=== PATIENT | female | born 1990 | race Caucasian/White ===

== ENCOUNTER → 2024-09-18 | Outpatient (CLI) | payer BC ==
[2024-09-18 18:50] LABS: HEMATOCRIT 39.6 % (36.0-47.0); HEMOGLOBIN 13.5 g/dl (12.0-15.5); MEAN CORPUSCULAR HEMOGLOBIN 29.3 pg (27.0-33.0); MEAN CORPUSCULAR HGB CONC 34.1 g/dl (32.0-36.5); MEAN CORPUSCULAR VOLUME 86.1 fl (80.0-96.0); PLATELET COUNT, AUTOMATED 287 10^3/uL (150-450); WHITE BLOOD COUNT 10.3 10^3/uL (4.0-10.0)
[2024-09-18 19:49] LABS: HIV 1&2 SCREEN NEGATIVE (NEGATIVE)
[2024-09-18 19:58] LABS: HEPATITIS C VIRUS ABY INDEX 0.03 INDEX (<0.8)
[2024-09-18 20:00] LABS: Trichomonas vaginalis (AMP) NOT DETECTED (NEGATIVE)
[2024-09-18 20:23] LABS: GC DNA AMPLIFICATION NEGATIVE (NEGATIVE)
== END ==
LOC: M PLALAB 16:06
PROVIDERS: ATTEND Advanced Practice Midwife
DX: Z34.91 Encounter for supervision of normal pregnancy, unspecified, first trimester (principal)

== ENCOUNTER → 2024-09-18 | Outpatient (REF) | payer BC | LOC: M PLALAB 15:59 | PROVIDERS: ATTEND Advanced Practice Midwife | DX: Z34.81 Encounter for supervision of other normal pregnancy, first trimester (principal) ==

== ENCOUNTER → 2024-11-19 | Outpatient (CLI) | payer BC | LOC: M WHC 14:34 | PROVIDERS: ATTEND Specialist | DX: Z34.82 Encounter for supervision of other normal pregnancy, second trimester (principal) ==

== ENCOUNTER → 2025-01-03 | Outpatient (CLI) | payer BC ==
[2025-01-03 17:25] LABS: PLATELET COUNT, AUTOMATED 257 10^3/uL (150-450)
[2025-01-03 18:21] LABS: HIV 1&2 SCREEN NEGATIVE (NEGATIVE)
[2025-01-03 18:28] LABS: HEPATITIS C VIRUS ABY INDEX 0.08 INDEX (<0.8)
== END ==
LOC: M PLALAB 14:49
PROVIDERS: ATTEND Obstetrics & Gynecology
DX: Z34.80 Encounter for supervision of other normal pregnancy, unspecified trimester (principal)

== ENCOUNTER → 2025-01-03 | Outpatient (CLI) | payer BC | LOC: M WHC 13:35 | PROVIDERS: ATTEND Obstetrics & Gynecology | DX: O44.40 Low lying placenta NOS or without hemorrhage, unspecified trimester (principal); Z34.80 Encounter for supervision of other normal pregnancy, unspecified trimester ==

== ENCOUNTER → 2025-01-09 | Outpatient (CLI) | payer BC ==
[2025-01-09 16:18] LABS: ALT/SGPT 17 U/L (7.0-40); AST/SGOT 17 U/L (<34); CREATININE FOR GFR 0.61 MG/DL (0.55-1.30); GLOMERULAR FILTRATION RATE > 90.0 (>60); GLUCOSE CHALLENGE TEST 1 HOUR 143 MG/DL (LESS THAN 140); LDH LACTATE DEHYDROGENASE 176 U/L (120-246)
== END ==
LOC: M PLALAB 12:16
PROVIDERS: ATTEND Obstetrics & Gynecology
DX: Z34.80 Encounter for supervision of other normal pregnancy, unspecified trimester (principal)

== ENCOUNTER → 2025-01-23 | Outpatient (CLI) | payer BC | LOC: M LAB 07:09 | PROVIDERS: ATTEND Nurse Practitioner Family | DX: E74.39 Other disorders of intestinal carbohydrate absorption (principal) ==

== ENCOUNTER → 2025-02-06 | Outpatient (CLI) | payer BC | LOC: M WHC 07:42 | PROVIDERS: ATTEND Nurse Practitioner Family | DX: O40.3XX0 Polyhydramnios, third trimester, not applicable or unspecified (principal); Z3A.30 30 weeks gestation of pregnancy ==

== ENCOUNTER → 2025-02-13 | Outpatient (CLI) | payer BC | LOC: M RAD 12:00 | PROVIDERS: ATTEND Obstetrics & Gynecology | DX: O40.3XX1 Polyhydramnios, third trimester, fetus 1 (principal); O28.8 Other abnormal findings on antenatal screening of mother ==

== ENCOUNTER → 2025-02-18 | Outpatient (CLI) | payer BC | LOC: M RAD 15:52 | PROVIDERS: ATTEND Obstetrics & Gynecology | DX: O40.3XX1 Polyhydramnios, third trimester, fetus 1 (principal); O28.8 Other abnormal findings on antenatal screening of mother ==

== ENCOUNTER → 2025-03-01 | Outpatient (CLI) | payer BC | LOC: M RAD 13:00 | PROVIDERS: ATTEND Obstetrics & Gynecology | DX: O40.3XX1 Polyhydramnios, third trimester, fetus 1 (principal); O28.8 Other abnormal findings on antenatal screening of mother ==

== ENCOUNTER → 2025-03-07 | Outpatient (CLI) | payer BC | LOC: M RAD 16:10 | PROVIDERS: ATTEND Obstetrics & Gynecology | DX: O40.3XX1 Polyhydramnios, third trimester, fetus 1 (principal) ==

== ENCOUNTER 2025-03-13 16:33 | Outpatient (CLI) | payer BC ==
[~2025-03-13] VITALS: Ht 175.3 cm; Wt 84.4 kg
[2025-03-13 16:51] VITALS: BP 139/78
[2025-03-13] MEDS ORDERED: PEPC1TAB5 PO (16:55)
[2025-03-13] MEDS ORDERED: ECOT81TA5 PO (16:55)
[2025-03-13] MEDS ORDERED: PRENTAB9 PO (16:55)
[2025-03-13 18:53] VITALS: BP 129/76
[2025-03-13] MEDS: BETAMETHASONE SOLUSPAN 6 MG/ML 5 ML VIAL IM SCH (20:02)
[2025-03-14] VITALS (19 sets, daily range): BP systolic 93–129; BP diastolic 51–76
[2025-03-14] MEDS ORDERED: HOME MED LIST COMPLETE! XX SCH (07:10)
[2025-03-14] MEDS: CALCIUM CARBONATE 500 MG CHEW U/D PO PRN (11:05)
== END 2025-03-14 20:18 | disposition home or self-care (01) ==
LOC: M LDO 16:33
PROVIDERS: ATTEND Advanced Practice Midwife
DX: O28.8 Other abnormal findings on antenatal screening of mother (principal); O26.23 Pregnancy care for patient with recurrent pregnancy loss, third trimester; Z87.59 Personal history of other complications of pregnancy, childbirth and the puerperium; Z67.31 Type AB blood, Rh negative; Z3A.35 35 weeks gestation of pregnancy
CPT/HCPCS: 59025; 76815; 76819; 76820; 96372; G0463; J0702

== ENCOUNTER → 2025-03-13 | Outpatient (REF) | payer BC ==
[~2025-03-13] MED LIST: ECOT81TA5 PO; PEPC1TAB5 PO; PRENTAB9 PO
== END ==
LOC: M PLALAB 15:15
PROVIDERS: ATTEND Advanced Practice Midwife
DX: Z34.93 Encounter for supervision of normal pregnancy, unspecified, third trimester (principal); Z3A.35 35 weeks gestation of pregnancy

== ENCOUNTER 2025-03-19 02:27 | Inpatient (IN) | payer BC ==
[~2025-03-19] VITALS: Ht 175.3 cm; Wt 85.2 kg
[2025-03-19] VITALS (40 sets, daily range): BP systolic 70–125; BP diastolic 37–74; O2SAT 100
[2025-03-19] MEDS ORDERED: HOME MED LIST COMPLETE! XX SCH ×2 (02:55→08:00)
[2025-03-19 03:43] LABS: PLATELET COUNT, AUTOMATED 255 10^3/uL (150-450)
[2025-03-19 04:39] LABS: HIV 1&2 SCREEN NEGATIVE (NEGATIVE)
[2025-03-19 04:47] LABS: HEPATITIS C VIRUS ABY INDEX < 0.02 INDEX (<0.8)
[2025-03-19] MEDS ORDERED: CARBOPROST TROMETHAMINE 250 MCG/ML AMP IM PRN (05:10)
[2025-03-19] MEDS ORDERED: LIDOCAINE 1% MDV 20 ML VIAL INFIL PRN (05:10)
[2025-03-19] MEDS ORDERED: METHYLERGONOVINE MALEATE 0.2 MG/ML 1 ML VIAL IM PRN ×2 (05:10→13:50)
[2025-03-19] MEDS ORDERED: OXYTOCIN INJ 10UNITS/ML 1ML VIAL IM PRN (05:10)
[2025-03-19] MEDS: LR 1,000 ML IV SCH (05:53)
[2025-03-19] MEDS: OXYTOCIN DRIP 30 UNITS in IV 1 EA IV SCH ×2 (05:54→14:15)
[2025-03-19] MEDS ORDERED: EPIDURAL/PCA KEYS XX PRN (06:45)
[2025-03-19] MEDS ORDERED: diphenhydrAMINE 50 MG/ML VIAL IV PRN (06:45)
[2025-03-19] MEDS ORDERED: ONDANSETRON 4MG 2ML VIAL IV PRN ×2 (06:45→13:50)
[2025-03-19] MEDS ORDERED: NALOXONE INJ 0.4 MG/1 ML VIAL IV PRN (06:45)
[2025-03-19] MEDS: FENTANYL/ROPIVACAINE/NACL BAG 100 ML EPIDURAL SCH (06:58)
[2025-03-19] MEDS: LR 500 ML IV PRN (08:14)
[2025-03-19] MEDS: OXYTOCIN DRIP 30 UNITS in IV 1 EA IV PRN (13:09)
[2025-03-19] MEDS ORDERED: LR 1,000 ML IV SCH (13:50)
[2025-03-19] MEDS ORDERED: CALCIUM CARBONATE 500 MG CHEW U/D PO PRN (13:50)
[2025-03-19] MEDS ORDERED: RHOGAM 300MCG (1500IU) INJ IM SCH (13:50)
[2025-03-19] MEDS ORDERED: ACETAMINOPHEN 325 MG TAB PO PRN (13:50)
[2025-03-19] MEDS ORDERED: ANUSOL HC CREAM 30 GM TOP PRN (13:50)
[2025-03-19] MEDS: DIBUCAINE 1% OINTMENT 30 GM TOP PRN (17:28)
[2025-03-19] MEDS: IBUPROFEN 600 MG TAB PO PRN (19:27)
[2025-03-19] MEDS: ACETAMINOPHEN 500 MG TAB PO PRN (23:26)
[2025-03-20] MEDS: IBUPROFEN 800 MG TAB PO PRN (03:38)
[2025-03-20 06:00] VITALS: BP 98/55; O2SAT 98
[2025-03-20] MEDS: PRENATAL VITAMINS CHEWABLE TABLET PO SCH (07:58)
[2025-03-20] MEDS: DOCUSATE SODIUM 100 MG CAPSULE PO PRN (08:30)
[2025-03-20] MEDS ORDERED: FLUZONE VACCINE TRIVALENT PF(25-26) 0.5ML SYRINGE IM.IMMUN ONE (10:05)
[2025-03-20 17:46] VITALS: BP 122/64; O2SAT 99
[2025-03-21 06:00] VITALS: BP 98/58; O2SAT 97
[2025-03-21] MEDS: MEASLES,MUMPS,RUBELLA VACCINE INJ (MMR-II) SC.IMMUN ONE (09:00)
[2025-03-21 09:40] VITALS: BP 116/57; O2SAT 97
[2025-03-21] MEDS: FLUZONE VACCINE TRIVALENT PF(25-26) 0.5ML SYRINGE IM.IMMUN ONE (09:44)
== END 2025-03-21 15:44 | disposition home or self-care (01) | DRG 560 ==
LOC: M LDO 02:27 → M LDI 03:12 → M OBS 16:47
PROVIDERS: ADMIT Advanced Practice Midwife; ATTEND Obstetrics & Gynecology
PROC: 10E0XZZ Delivery of Products of Conception, External Approach (ICD-10-PCS; principal; 2025-03-19)
PROC: 0KQM0ZZ Repair Perineum Muscle, Open Approach (ICD-10-PCS; 2025-03-19)
DX: O42.013 Preterm premature rupture of membranes, onset of labor within 24 hours of rupture, third trimester (principal); O70.1 Second degree perineal laceration during delivery; Z3A.36 36 weeks gestation of pregnancy; Z37.0 Single live birth